=== PATIENT | female | born 1990 | race Caucasian/White ===

== ENCOUNTER 2017-10-08 21:57 | Emergency (ER) | payer MEDICAID ==
[2017-10-08 21:57] VITALS: BMI 32.4
[2017-10-08] MEDS ORDERED: Lactated Ringer's 1,000 ML IV STA (22:51)
[2017-10-08 23:13] LABS: BASO # 0.1 K/uL (0.0-0.2); BASO % 0.4 % (0.0-2.0); EOS # 0.2 K/uL (0.0-0.7); EOS % 1.5 % (0.0-4.0); HEMOGLOBIN 10.8 g/dL (12.0-16.0); LYMPH # 4.1 K/uL (1.0-4.3); LYMPH % 29.1 % (20.0-40.0); MEAN CELL VOLUME 89.1 fl (81.0-99.0); MEAN CORPUSCULAR HEMOGLOBIN 29.3 pg (27.0-31.0); MEAN CORPUSCULAR HGB CONC 32.8 g/dL (33.0-37.0); MEAN PLATELET VOLUME 8.7 fl (7.2-11.7); MONO # 1.3 K/uL (0.0-0.8); MONO % 9.5 % (0.0-10.0); NEUT # 8.4 K/uL (1.8-7.0); NEUT % 59.5 % (50.0-75.0); RBC 3.68 Mil/uL (3.80-5.20); RED CELL DISTRIBUTION WIDTH 13.7 % (11.5-14.5); WHITE BLOOD COUNT 14.2 K/uL (4.8-10.8)
[2017-10-08 23:27] LABS: PARTIAL THROMBOPLASTIN TIME 32.7 Seconds (25.6-37.1); PROTHROMBIN TIME 11.4 Seconds (9.8-13.1)
[2017-10-08 23:32] LABS: ALB/GLOB RATIO 0.7 (1.0-2.1); ALBUMIN 3.5 g/dL (3.5-5.0); ALT/SGPT 40 U/L (9-52); AST/SGOT 68 U/L (14-36); B-TYPE NATRIURETIC PEPTIDE 36.3 pg/ml (0-450); BLOOD UREA NITROGEN 7 mg/dl (7-17); CALCIUM 8.8 mg/dL (8.4-10.2); GFR AFRICAN-AMERICAN > 60; GFR NON-AFRICAN AMERICAN > 60
[2017-10-08] MEDS ORDERED: Sodium Chloride 0.9% 50 ML IV ONE (23:37)
[2017-10-08] MEDS ORDERED: Iodixanol 320 MG/ML 100 ML BOTTLE IV ONE (23:37)
--- NOTE | 2017-10-08 23:50 | ED PDOC ---
HPI: Chest Pain Time Seen by Provider: 10/08/17 22:24 Chief Complaint (Nursing): Chest Pain Chief Complaint (Provider): Chest Pain, Shortness Of Breath History Per: Patient History/Exam Limitations: no limitations Onset/Duration Of Symptoms: Days (x2) Current Symptoms Are (Timing): Still Present Additional Complaint(s): 27 y/o female with a PMHx of lupus and pleural effusion (2014) presenting for evaluation of shortness of breath and right sided chest pain x2 days. Patient reports that shes been having right sided chest pain and shortness of breath since Sunday that has been worsening since onset. Patient states she believes it started a week ago as a right sided headache which resolved. She states her shortness of breath worsens with exertion. She denies any cough or fever. Patient is currently 27 weeks . She denies any vaginal discharge or bleeding, or any urinary symptoms. PMD: Dr. Caruso [facility]: Dr. Mullins Past Medical History Reviewed: Historical Data Vital Signs: Last Vital Signs Temp 98.2 F 10/09/17 03:54 Pulse 97 H 10/09/17 03:54 Resp 22 10/09/17 03:54 BP 124/76 10/09/17 03:54 Pulse Ox 100 10/09/17 04:39 - Medical History Other PMH: Lupus, Pleural Effusion (2014) - Surgical History Other surgeries: Thoracentesis - Family History Family History: States: Unknown Family Hx - Social History Current smoker - smoking cessation education provided: No Alcohol: None Drugs: Denies - Home Medications Home Medications: Ambulatory Orders Medication Instructions Recorded Aspirin [Adult Low Dose Aspirin EC] 81 mg PO DAILY 10/09/17 No.40/Iron/FA/Dha [Cvs 1 cap PO DAILY 10/09/17 Multi-Dha Softgel] - Allergies Allergies/Adverse Reactions: Allergies Allergy/AdvReac Type Severity Reaction Status Date / Time No Known Allergies Allergy Verified 02/15/15 17:39 Review of Systems ROS Statement: Except As Marked, All Systems Reviewed And Found Negative Constitutional: Negative for: Fever Cardiovascular: Positive for: Chest Pain Respiratory: Positive for: Shortness of Breath, SOB with Exertion. Negative for : Cough Genitourinary Female: Negative for: Dysuria, Frequency, Incontinence, Hematuria , Vaginal Discharge, Vaginal Bleeding Physical Exam - Reviewed Nursing Documentation Reviewed: Yes Vital Signs Reviewed: Yes - Physical Exam Appears: Positive for: Non-toxic, In Acute Distress (mild respiratory distress) Head Exam: Positive for: ATRAUMATIC, NORMOCEPHALIC Skin: Positive for: Warm, Dry Eye Exam: Positive for: EOMI, PERRL ENT: Negative for: Pharyngeal Erythema, Tonsillar Exudate Neck: Positive for: Painless ROM, Supple Cardiovascular/Chest: Positive for: Tachycardia (regular rhythm) Respiratory: Positive for: Decreased Breath Sounds (right lower lung field, otherwise lungs clear to auscultation), Respiratory Distress (mild). Negative for: Rales, Rhonchi, Wheezing Gastrointestinal/Abdominal: Positive for: Soft. Negative for: Tenderness Back: Positive for: Normal Inspection. Negative for: Decreased ROM Extremity: Positive for: Normal ROM. Negative for: Deformity Lymphatic: Negative for: Adenopathy Neurologic/Psych: Positive for: Alert. Negative for: Motor/Sensory Deficits - Laboratory Results Result Diagrams: 10/08/17 23:10 10/08/17 23:10 - ECG O2 Sat by Pulse Oximetry: 100 (RA) Pulse Ox Interpretation: Normal Medical Decision Making Medical Decision Makin:49 Impression: Shortness of breath. Differential diagnoses include, but are not limited to PE, pleural effusion, pneumonia, dehydration, and CHF. DW pt high risk of PE in her clinical presentation (tachycardia, SOB, lupus and ) and that best test would be CT angio chest. Concerns about risk of radiation addressed and discussed very low risk of watermelon inspector effects on fetus (> 15 weeks means past organogenesis/risk of teratogenicity). Cancer risk extremely low based on population studies of radiation exposure. Benefit of ruling out serious lethal diagnosis outweighs risk to fetus and pt agreeable to have CT performed. Consent signed. Plan: -CT Angio Chest PE -EKG -BNP -CMP -Magnesium -Phosphorus -Troponin I -Urine dipstick -CBC -PTT/PT -Lactated ringers 1,000ml IV -Blood culture -surveillance monitor -IV insertion -Reevaluation 00:00 IV dye did not get infused into patient during CT scan so patient had plain chest CT. Explained to pt will probably need repeat CT WITH IV contrast to r/o PE, if no other diagnoses found on CT. Patient endorsed to Dr. Carolina pending CT result and reevaluation. ----- Scribe Attestation: Documented by German Lopez, acting as a scribe for Lashaun Herrera MD. Provider Scribe Attestation: All medical record entries made by the Scribe were at my direction and personally dictated by me. I have reviewed the chart and agree that the record accurately reflects my personal performance of the history, physical exam, medical decision making, and the department course for this patient. I have also personally directed, reviewed, and agree with the discharge instructions and disposition. Disposition - Clinical Impression Clinical Impression: Chest wall pain - Patient ED Disposition Is Patient to be Admitted: Transfer of Care - Disposition Disposition: Transfer of Care Disposition Time: 00:00 Condition: STABLE Patient Signed Over To: Morgan Carolina Handoff Comments: pending CT and reevaluation
--- NOTE | 2017-10-09 00:25 | ED PDOC ---
- Laboratory Results Result Diagrams: 10/08/17 23:10 10/08/17 23:10 - ECG O2 Sat by Pulse Oximetry: 100 (RA) Medical Decision Making Medical Decision Makin:00 Patient endorsed to me by Dr. Herrera pending CT and reevaluation. 00:51 EXAM: CT Angiography Chest With Intravenous Contrast EXAM DATE/TIME: 10/08/2017 10:49 PM CLINICAL HISTORY: 27 years old, female; Signs and symptoms; Shortness of breath; Patient HX: 90 cc visipaque leaked out. No extravasation; Additional info: SOB chest pain 27 weeks lupus TECHNIQUE: Axial computed tomographic angiography images of the chest with intravenous contrast using CT angiography protocol. All CT scans at this facility use at least one of these dose optimization techniques: automated exposure control; mA and/or kV adjustment per patient size (includes targeted exams where dose is matched to clinical indication); or iterative reconstruction. Coronal and sagittal reformatted images were created and reviewed. MIP reconstructed images were created and reviewed. CONTRAST: 90 ml of [id number] administered intravenously. COMPARISON: No relevant prior studies available. FINDINGS: Pulmonary arteries: Evaluation for pulmonary embolism is not possible secondary to contrast bolus. Aorta: Normal. No aortic aneurysm. No aortic dissection. Lungs: Mild dependent atelectatic changes in the lungs. Pleural space: Normal. No pneumothorax. No pleural effusion. Heart: Normal. No cardiomegaly. No pericardial effusion. Bones/joints: Unremarkable. No acute fracture. Soft tissues: Unremarkable. Lymph nodes: Multiple prominent axillary lymph nodes. IMPRESSION: 1. Evaluation for pulmonary embolism is not possible secondary to contrast bolus. 2. Multiple prominent axillary lymph nodes. Thank you for allowing us to participate in the care of your patient. Dictated and Authenticated by: Polo Burgos MD 10/09/2017 12:51 AM Eastern Time ([place] & [place]) Provider explained need to patient to repeat CT to exclude pulmonary embolus due to study being non diagnostic. Patient has asked that Dr. Cooper, her perinatologist, be contacted prior to repeat CT citing concern due to radiation exposure. 01:[address] Gibson, OBGYN pre sales technical consultant, covering for Dr. Mullins who is patient s private OBGYN. Dr. Gibson currently conversing with patient and addressing patients concerns of radiation exposure. 2:07 Patient is now agreeing to repeat CT angio to further exlude PE. 03:14 Dr. oCoper returned call and agreed with need for repeat CT. 03:35 EXAM: CT Angiography Chest With Intravenous Contrast EXAM DATE/TIME: 10/09/2017 2:07 AM CLINICAL HISTORY: 27 years old, female; Signs and symptoms; Shortness of breath; Additional info: Chest pain R/O pe TECHNIQUE: Axial computed tomographic angiography images of the chest with intravenous contrast using CT angiography protocol. All CT scans at this facility use at least one of these dose optimization techniques: automated exposure control; mA and/or kV adjustment per patient size (includes targeted exams where dose is matched to clinical indication); or iterative reconstruction. MIP reconstructed images were created and reviewed. CONTRAST: 53 ml of [id number] administered intravenously. COMPARISON: CT - ANGIO CHEST PE PROTOCOL 2017-10-08 23:49 FINDINGS: Pulmonary arteries: No pulmonary embolism. Aorta: Normal. No aortic aneurysm. No aortic dissection. Lungs: Mild dependent atelectatic changes in the lungs. Pleural space: Trace right-sided pleural effusion. Heart: Normal. No cardiomegaly. No pericardial effusion. Bones/joints: Unremarkable. No acute fracture. Soft tissues: Unremarkable. Lymph nodes: Enlarged axillary lymph nodes. IMPRESSION: 1. Enlarged axillary lymph nodes. 2. Trace right-sided pleural effusion. 3. No pulmonary embolism. Spoke with patient regarding results. Patient feels comfortable following up with OBGYN, Dr. Cooper, and her rn night. Patient was advised she may take Tylenol. Patient given return precautions. ----- Scribe Attestation: Documented by German Lopez, acting as a scribe for Morgan Carolina MD. Provider Scribe Attestation: All medical record entries made by the Scribe were at my direction and personally dictated by me. I have reviewed the chart and agree that the record accurately reflects my personal performance of the history, physical exam, medical decision making, and the department course for this patient. I have also personally directed, reviewed, and agree with the discharge instructions and disposition. Disposition Counseled Patient/Family Regarding: Studies Performed, Diagnosis, Need For Followup - Clinical Impression Clinical Impression: Chest wall pain - POA Present On Arrival: None - Disposition Referrals: ED Physician, [Staff Provider] - Disposition: Routine/Home Disposition Time: 03:35 Condition: STABLE Additional Instructions: LUCY TORRES, thank you for letting us take care of you today. Your provider was Morgan Carolina MD and you were treated for SOB, 27 WEEKS PREG. The emergency medical care you received today was directed at your acute symptoms. If you were prescribed any medication, please fill it and take as directed. It may take several days for your symptoms to resolve. Return to the Emergency Department if your symptoms worsen, do not improve, or if you have any other problems. Please contact your doctor or call one of the physicians/clinics you have been referred to that are listed on the Patient Visit Information form that is included in your discharge packet. Bring any paperwork you were given at discharge with you along with any medications you are taking to your follow up visit. Our treatment cannot replace ongoing medical care by a primary care provider outside of the emergency department. Thank you for allowing the [facility] team to be part of your care today. If you had an X-Ray or CT scan: A Radiologist will review the ED reading if any change in treatment is needed we will contact you. If you had a blood, urine, or wound culture: It will take several days for the results, if any change in treatment is needed we will contact you. If you had an STI test: It will take 48 hours for the results. Please call after 1 week if you have not heard back. Instructions: Chest Pain That Is Not Caused by the Heart (DC), Costochondritis (DC) Forms: [employer] (Pashto)
[2017-10-09] MEDS ORDERED: Sodium Chloride 0.9% 50 ML IV ONE (02:12)
[2017-10-09] MEDS ORDERED: Iodixanol 320 MG/ML 100 ML BOTTLE IV ONE (02:12)
[2017-10-09 02:45] VITALS: PULSE 97
[2017-10-09 03:22] VITALS: O2SAT 100
[2017-10-09 03:55] VITALS: BP 124/76; RESP 22; TEMP 98.2
--- NOTE | 2017-10-09 11:58 | CT ---
PROCEDURE: CT Chest with contrast (Pulmonary Angiogram) HISTORY: sob chest pain 27 weeks lupus COMPARISON: None available. TECHNIQUE: Axial computed tomography images were obtained of the chest in the pulmonary arterial phase of enhancement. Coronal and sagittal reformatted images were created and reviewed. Intravenous contrast dose: Contrast injection malfunction Radiation dose: Total exam DLP = 335.24 mGy-cm. This CT exam was performed using one or more of the following dose reduction techniques: Automated exposure control, adjustment of the mA and/or kV according to patient size, and/or use of iterative reconstruction technique. FINDINGS: PULMONARY ARTERIES: Nondiagnostic assessment of the pulmonary arteries. AORTA: No acute findings. No thoracic aortic aneurysm. LUNGS: Unremarkable. No nodule, mass or pulmonary consolidation. PLEURAL SPACES: Unremarkable. No effusion or pneuomothorax. HEART: Unremarkable. No cardiomegaly. No significant pericardial effusion. LYMPH NODES: Axillary, hilar, mediastinal adenopathy of uncertain etiology. Is there a known history of lymphoma/ neoplasm? BONES, CHEST WALL: Unremarkable. No fracture or destructive lesion OTHER FINDINGS: Unremarkable. IMPRESSION: Nondiagnostic assessment for pulmonary embolism. Extensive axillary, hilar and mediastinal adenopathy. Concordant results (preliminary interpretation) provided by [employer]. Procedure Completed: 00:03 Preliminary ([facility]) Report: Dictated and Authenticated: 00:51 Final Interpretation: 11:56 October 09, 2017.
--- NOTE | 2017-10-09 12:30 | CT ---
PROCEDURE: CT Chest with contrast (Pulmonary Angiogram) HISTORY: chest pain r/o PE COMPARISON: None available. TECHNIQUE: Axial computed tomography images were obtained of the chest in the pulmonary arterial phase of enhancement. Coronal and sagittal reformatted images were created and reviewed. Maximum intensity projection (MIP) reconstructed images in the following planes: Axial only. Intravenous contrast dose: 90 cc Visipaque 320 Mean Hounsfield unit values in the main pulmonary artery: 194.88 Radiation dose: Total exam DLP = 326.34 mGy-cm. This CT exam was performed using one or more of the following dose reduction techniques: Automated exposure control, adjustment of the mA and/or kV according to patient size, and/or use of iterative reconstruction technique. FINDINGS: PULMONARY ARTERIES: Unremarkable. No pulmonary embolism. AORTA: No acute findings. No thoracic aortic aneurysm. LUNGS: Unremarkable. No nodule, mass or pulmonary consolidation. PLEURAL SPACES: Unremarkable. No effusion or pneuomothorax. HEART: Unremarkable. No cardiomegaly. No significant pericardial effusion. LYMPH NODES: Axillary lymphadenopathy bilaterally. Multiple mediastinal and to lesser extent hilar lymph nodes also identified. BONES, CHEST WALL: Unremarkable. No fracture or destructive lesion OTHER FINDINGS: Unremarkable. IMPRESSION: Unremarkable CT pulmonary angiogram. No pulmonary embolus. Bilateral axillary/mediastinal adenopathy. Etiology/significance unknown. Concordant results (preliminary interpretation) provided by [employer]. Procedure Completed: 02:24 Preliminary ([facility]) Report: Dictated and Authenticated: 03:35 Final Interpretation: 12:26
== END 2017-10-09 03:59 | disposition home or self-care (01) ==
LOC: H.ER 21:57
DX: R07.89 Other chest pain (principal); O26.892 Other specified pregnancy related conditions, second trimester; O99.89 Other specified diseases and conditions complicating pregnancy, childbirth and the puerperium; M32.9 Systemic lupus erythematosus, unspecified; Z3A.27 27 weeks gestation of pregnancy
CPT/HCPCS: 71275; 80053; 83735; 83880; 84100; 84484; 85025; 85610; 85730; 87040; 99285; J7120; Q9967

== ENCOUNTER 2017-11-07 12:28 | Emergency (ER) | payer MEDICAID ==
--- NOTE | 2017-11-07 16:02 | OBHP ---
Datetime: 11/07/2017 13:45 Admit Comment, IP Provider: This is a 27 yo 31 wk with PMH of preeclambsia was sent to [facility] fro m her doctor office after he found that pt bp was high and pt complained of decrease movement f or past 3 weeks. Pt is asymptomatic and have no other complain, she denies trauma, falls, blood gush, contraction, discharges. PT denies fever, chills, headache, chest pain, SOB, abd pain, diarrhea, constipation, dysuria, p olyuria. care: [place] started at 6 week POBX: Vaginal delivery ( 2007) @36 wk induced due to Pre-eclampsia Med , aspirin 81mg PMH: preeclambsia PSH : none PFH: Mom hTN, Dm, Dad healthy Social: no smoke, no drink, denies drug use ROS: Pt denies dizziness, headache, Blurry vision, CP, SOB, NVDC, burn on urination Assessment: This is a 27 yo 31 wk with PMH of preeclambsia was sent to [facility] from her doctor office due to High blood pressure and decrease movement. Pt is lying comfortable in bed with no acute distress BP is controlled 116/76 baseline is category 1 with good variability, no late deacceleration noted Plan Observe Pt in [facility] Monitor Vitals Seen and examined with Dr Lowe Note writed by Dr. Lemus PGY1 The patient was seen with the resident I agree with the note Pelvic Type - PN: Not Done Extremities - PN: Normal Abdomen - PN: Normal Back - PN: Not Done Breast - PN: Not Done Lungs - PN: Normal Heart - PN: Normal Thyroid - PN: Not Done Neurologic - PN: Not Done HEENT - PN: Normal General - PN: Normal FHR - Baseline A Provider: 130 Comments, ACOG Physical Exam: PE: BP 116/76 P 77 Pt is lying on bed with no acute distress Heart : s1 s2 heard no murmur or extra heart sound Lung : clear on auscultation on all quadrant Abd : BS +, Non tender. EGA AdmitDate IP: 31.5 Vital Signs Provider: Reviewed; Within Normal Limits IP Chief Complaint: Decreased movement; Signs/Symptoms Gestational HTN; evaluation NICHD Variability Prov Fetus A: Moderate 6-25bpm NICHD Accel Fetus A IP Provider: 10X10 FHR Category Provider Fetus A: Category I NICHD Decel Fetus A IP Provider: Variable Genitourinary Exam: Not Done DTRs - PN: Not Done
[2017-11-07 20:42] VITALS: BP 121/78; PULSE 72; RESP 18; TEMP 98.3; O2SAT 99
== END 2017-11-07 15:25 | disposition home or self-care (01) ==
LOC: H.EROB2 12:28
DX: O13.3 Gestational [pregnancy-induced] hypertension without significant proteinuria, third trimester (principal); O36.8130 Decreased fetal movements, third trimester, not applicable or unspecified; Z3A.31 31 weeks gestation of pregnancy; O09.33 Supervision of pregnancy with insufficient antenatal care, third trimester

== ENCOUNTER 2017-12-05 13:30 | Emergency (ER) | payer MEDICAID ==
[2017-12-05 14:08] VITALS: BMI 31.2
[2017-12-05 15:01] LABS: HEMOGLOBIN 10.3 g/dL (12.0-16.0); MEAN CELL VOLUME 85.1 fl (81.0-99.0); MEAN CORPUSCULAR HEMOGLOBIN 28.7 pg (27.0-31.0); MEAN CORPUSCULAR HGB CONC 33.8 g/dL (33.0-37.0); RBC 3.58 Mil/uL (3.80-5.20); RED CELL DISTRIBUTION WIDTH 14.3 % (11.5-14.5); WHITE BLOOD COUNT 8.1 K/uL (4.8-10.8)
[2017-12-05 15:19] LABS: ALB/GLOB RATIO 0.9 (1.0-2.1); ALBUMIN 3.4 g/dL (3.5-5.0); ALT/SGPT 28 U/L (9-52); AST/SGOT 65 U/L (14-36); BLOOD UREA NITROGEN 6 mg/dl (7-17); GFR NON-AFRICAN AMERICAN > 60
[2017-12-05 15:24] LABS: SQUAMOUS EPITHIAL 2 /hpf (0-5); URINE AMORPHOUS SEDIMENT RARE /ul (<OCC); URINE BACTERIA RARE (<OCC); URINE BILIRUBIN NEGATIVE (NEGATIVE); URINE BLOOD NEGATIVE (NEGATIVE); URINE CLARITY CLOUDY (Clear); URINE COLOR YELLOW (YELLOW); URINE GLUCOSE (UA) NEG (Normal); URINE LEUKOCYTE ESTERASE TRACE Leu/uL (Negative); URINE PROTEIN NEGATIVE (NEGATIVE); URINE UROBILINOGEN 0.2-1.0 mg/dL (0.2-1.0)
--- NOTE | 2017-12-05 16:32 | OBHP ---
Datetime: 12/05/2017 16:15 IP Adm Impression: , intrauterine IP Chief Complaint Other: Elevated BP IP Admit Plan: Discharge home Admit Comment, IP Provider: HPI: Tavia is a 27yo at 36.3 who was sent to triage for monitorin g and evaluation of elevated BPs in the office today. She has a history of pre-eclampsia with her fir st 10 years ago and delivered at 35 weeks. She has been seen here in triage already at 31 w eeks for elevated BP readings in the office, however at that time her BP was normal and her labs were reassuring. She started aspirin during this and continued up until 35 weeks. Today at the office her pressure was found to be in the 140s systolic again so she was sent here. She does not mon itor her BP at home. ROS: Denies FERNANDEZ, vision changes, RUQ or epigastric pain or LE edema. History Previous diagnosis of preeclampsia, delivery at 35 weeks in 2007 Problems with this Hx preeclampsia, was on ASA 81mg PMH Denies PSH Denies Medications PNV Allergies Abdomen - PN: Normal Lungs - PN: Normal Heart - PN: Normal HEENT - PN: Normal General - PN: Normal IP Fetus A Comments: Reactive NST FHR - Baseline A Provider: 145 Comments, ACOG Physical Exam: Highest BP 135/90 General: Appears comfortable, no acute distress Vaginal exam: deferred Gestation - Est Wks by US: 36.3 Vital Signs Provider: Reviewed NICHD Variability Prov Fetus A: Moderate 6-25bpm NICHD Accel Fetus A IP Provider: 15X15 Datetime: 11/07/2017 13:45 EGA AdmitDate IP: 31.5
[2017-12-05 20:35] VITALS: BP 112/89; PULSE 89; TEMP 97.5
== END 2017-12-05 16:33 | disposition home or self-care (01) ==
LOC: H.EROB2 13:30
DX: O13.3 Gestational [pregnancy-induced] hypertension without significant proteinuria, third trimester (principal); Z3A.36 36 weeks gestation of pregnancy

== ENCOUNTER 2017-12-26 18:44 | Emergency (ER) | payer MEDICAID ==
[2017-12-26 19:37] VITALS: BMI 31.6
[2017-12-26 20:40] LABS: BASO # 0.1 K/uL (0.0-0.2); BASO % 0.7 % (0.0-2.0); EOS # 0.1 K/uL (0.0-0.7); EOS % 0.7 % (0.0-4.0); HEMOGLOBIN 10.5 g/dL (12.0-16.0); LYMPH # 4.6 K/uL (1.0-4.3); LYMPH % 48.2 % (20.0-40.0); MEAN CELL VOLUME 84.4 fl (81.0-99.0); MEAN CORPUSCULAR HGB CONC 33.2 g/dL (33.0-37.0); MEAN PLATELET VOLUME 9.9 fl (7.2-11.7); MONO # 0.8 K/uL (0.0-0.8); MONO % 8.7 % (0.0-10.0); NEUT % 41.7 % (50.0-75.0); NRBC % 0.5 % (0.0-0.0); RBC 3.77 Mil/uL (3.80-5.20); RED CELL DISTRIBUTION WIDTH 14.5 % (11.5-14.5); WHITE BLOOD COUNT 9.6 K/uL (4.8-10.8)
[2017-12-26 20:49] LABS: ALB/GLOB RATIO 0.8 (1.0-2.1); ALBUMIN 3.4 g/dL (3.5-5.0); ALT/SGPT 30 U/L (9-52); AST/SGOT 77 U/L (14-36); BLOOD UREA NITROGEN 7 mg/dl (7-17); CALCIUM 8.9 mg/dL (8.4-10.2); GFR NON-AFRICAN AMERICAN > 60
[2017-12-26 20:59] LABS: SQUAMOUS EPITHIAL 2 /hpf (0-5); URINE BACTERIA OCC (<OCC); URINE BILIRUBIN NEGATIVE (NEGATIVE); URINE BLOOD NEGATIVE (NEGATIVE); URINE CLARITY SLIGHTY-CLOUDY (Clear); URINE COLOR YELLOW (YELLOW); URINE GLUCOSE (UA) NEG (Normal); URINE LEUKOCYTE ESTERASE NEG Leu/uL (Negative); URINE PROTEIN NEGATIVE (NEGATIVE); URINE UROBILINOGEN 0.2-1.0 mg/dL (0.2-1.0)
--- NOTE | 2017-12-26 22:32 | OBHP ---
Datetime: 12/26/2017 20:24 IP Adm Impression: Term, intrauterine IP Admit Plan: Observation/Evaluation Admit Comment, IP Provider: 27 y/o , 38.6 wks based on LMP 03/29/17 and YELENA of 01/03/18 presen ts to [facility] with elevated BP at Clinic today. This is Dr. Mullins's patient and had BP of 145/99 at t he office. Patient denies any contractions, abdominal pain, VB, or LOF. denies any blurry vision, hea daches, urinary symptoms, CP or SOB. Pt had US done last week which was unremarkable as per patient, next US tomorrow. PNC: Dr. Mullins course: Elevated BP >140/90 x 1 in office. Unremarkable otherwise POBHx: Preeclampsia, 36 wks, IOL with NVD @ 36 wks PGynHx: Abn paps, 07/11/17 pap WNL PMHx: None PSHx: none Allergies: none Medications: PNVs F/H: Father thyroid Mother HTN Social: Denies tobacco, alcohol,drugs PE General: Well NAD Chest: RRR, S1S2 present Lungs: CTA B/L Abdomen: Gravid, NT Ext: No pedal edema, No calf tendernes A/P: 27 y/o , 38.6 , pt of Dr. mullins, presents with Elevated BP today at clinic R/O Preeclampsia - EFM and Dixon monitoring - CBC, CMP, UA Stat - NST reactive, moderate variability, + accels, No decels - Irregular contractions on Dixon - Labs unremarkable except AST 77 - Overall BP <140/90 except for one spurious reading >140/90 likely due to patient positioning. - Patient to be discharged home - Follow up with Dr. Mullins on 12/31/17. - Labor precautions provided - Case discussed with Dr. Lowe. Hugo Williamson, PGY1 FHR - Baseline A Provider: 130 Contraction Comments Provider: Irregular Comments, ACOG Physical Exam: General: Well NAD Chest: RRR, S1S2 present Lungs: CTA B/L Abdomen: Gravid, NT Ext: No pedal edema, No calf tendernes IP Hx Assessment: The History has been Reviewed and is Current EGA AdmitDate IP: 38.5 Vital Signs Provider: Reviewed IP Chief Complaint: Signs/Symptoms Gestational HTN NICHD Variability Prov Fetus A: Moderate 6-25bpm NICHD Accel Fetus A IP Provider: 15X15 FHR Category Provider Fetus A: Category I NICHD Decel Fetus A IP Provider: None
[2017-12-27 04:02] VITALS: BP 136/89; PULSE 75; RESP 18; TEMP 98.4; O2SAT 99
== END 2017-12-26 22:00 | disposition home or self-care (01) ==
LOC: H.EROB2 18:44
DX: O13.3 Gestational [pregnancy-induced] hypertension without significant proteinuria, third trimester (principal); Z3A.38 38 weeks gestation of pregnancy

== ENCOUNTER 2018-01-02 19:14 | Inpatient (IN) | payer MEDICAID ==
[2018-01-02 19:51] VITALS: BMI 31.7
[2018-01-02] MEDS ORDERED: Lactated Ringer's 1,000 ML IV ONE (20:22)
[2018-01-02] MEDS ORDERED: Lactated Ringer's 1,000 ML IV SCH (20:30)
[2018-01-02 20:48] LABS: BASO # 0.1 K/uL (0.0-0.2); BASO % 0.5 % (0.0-2.0); EOS % 0.4 % (0.0-4.0); HEMOGLOBIN 10.6 g/dL (12.0-16.0); LYMPH # 5.4 K/uL (1.0-4.3); LYMPH % 45.1 % (20.0-40.0); MEAN CELL VOLUME 84.5 fl (81.0-99.0); MEAN CORPUSCULAR HEMOGLOBIN 27.6 pg (27.0-31.0); MEAN CORPUSCULAR HGB CONC 32.7 g/dL (33.0-37.0); MEAN PLATELET VOLUME 9.7 fl (7.2-11.7); MONO # 1.1 K/uL (0.0-0.8); MONO % 9.5 % (0.0-10.0); NEUT # 5.3 K/uL (1.8-7.0); NEUT % 44.5 % (50.0-75.0); NRBC % 0.2 % (0.0-0.0); RBC 3.83 Mil/uL (3.80-5.20); RED CELL DISTRIBUTION WIDTH 15.3 % (11.5-14.5); WHITE BLOOD COUNT 11.9 K/uL (4.8-10.8)
[2018-01-02 23:13] VITALS: RESP 18; O2SAT 100
[2018-01-03] MEDS ORDERED: Fentanyl/Bupivacaine HCl 250 ML EPI ONE ×2 (08:22→16:10)
[2018-01-03] MEDS ORDERED: Oxytocin 30 UNIT 30 UNITS/500 ML BAG IV ONE (08:44)
[2018-01-03] MEDS ORDERED: OXYTOCIN/0.9 % NS 20 UNIT/1,000 ML BAG IV SCH ×2 (08:45→16:10)
[2018-01-03] MEDS ORDERED: ceFAZolin IV 2 gm in Dextrose 0 GM/0 ML BAG IVPB ONE (10:47)
[2018-01-03] MEDS ORDERED: Succinylcholine 200 mg/10 ml Inj IV ONE (10:55)
[2018-01-03] MEDS ORDERED: Propofol 10 mg/ml Inj (20 ML) ONE (10:55)
[2018-01-03] MEDS ORDERED: Lidocaine 2% MPF (5 ml) Inj ONE (11:04)
[2018-01-03] MEDS ORDERED: Benzocaine/Menthol SPRAY TOP PRN ×2 (11:46→16:10)
[2018-01-03 14:24] LABS: MEAN CELL VOLUME 84.9 fl (81.0-99.0); MEAN CORPUSCULAR HEMOGLOBIN 27.8 pg (27.0-31.0); MEAN CORPUSCULAR HGB CONC 32.7 g/dL (33.0-37.0); RBC 3.95 Mil/uL (3.80-5.20); RED CELL DISTRIBUTION WIDTH 15.5 % (11.5-14.5); WHITE BLOOD COUNT 13.9 K/uL (4.8-10.8)
[2018-01-03] MEDS ORDERED: Lactated Ringer's 1,000 ML IV SCH (16:10)
--- NOTE | 2018-01-04 00:46 | OBDS ---
DELIVERY PERSONNEL Delivery Doctor: Belen Mullins MD Analytical Lab Analyst: Jeannie Álvarez RN Anesthesiologist: Kaushal Hicks MD Resident: Dr. Nguyen MATERNAL INFORMATION Delivery Anesthesia: Epidural Estimated Blood Loss (ml): 200 Placenta Cultured: No Maternal Complications: None RN Comments: Dr Dave Package Delivery Room Service Runner present at delivery Provider Comments: Normal spontaneous vaginal delivery. Patient delivered viable infant with Apgars of 9 and 9 at one and 5 minutes respectively. Placenta delivered spontaneously. No lacerations, perineum intact. Uterus firm and appropriately hemostatic f ollowing delivery. Cord gases sent. Cord blood was collected. Patient tolerated delivery well. No com plications. Estimated blood loss 300 mL. LABOR SUMMARY EDC: 01/03/2018 00:00 No. Babies in Womb: 1 Attempted: No Labor Anesthesia: Epidural LABOR INFORMATION Reason for Induction: Other Onset of Labor: 01/03/2018 08:00 Complete Dilatation: 01/03/2018 10:50 Cervical Ripening Agents: Cervidil (Annotations: Cervidil 10mg inserted by Dr. Acharya ) Oxytocin: N/A Group B Beta Strep: Negative Antibiotics # of Doses: 0 Steroids Given: None Reason Steroids Not Administered: Not Applicable MEMBRANES Membranes Rupture Method: Artificial Rupture of Membranes: 01/03/2018 10:50 Length of Rupture (hrs): 0.63 Amniotic Fluid Color: Clear Amniotic Fluid Amount: Moderate Amniotic Fluid Odor: Normal STAGES OF LABOR Stage 1 hrs: 2 Stage 1 min: 50 Stage 2 hrs: 0 Stage 2 min: 38 Stage 3 hrs: 0 Stage 3 min: 4 Total Time in Labor hrs: 3 Total Time in Labor min: 32 VAGINAL DELIVERY Episiotomy: None Laceration Extension: N/A Laceration Type: None Initial Vag Sponge Count: 15 Final Vag Sponge Count: 15 Initial Vag Sharps Count: 1 Final Vag Sharps Count: 1 Sponge Count Correct: Yes BABY A INFORMATION Delivery Date/Time: 01/03/2018 11:28 Method of Delivery: Vaginal Born in Route : No : N/A Forceps: N/A Vacuum Extraction: N/A Shoulder Dystocia : No SHOULDER DYSTOCIA BABY A Infant Delivery Date/Time: 01/03/2018 11:28 PRESENTATION/POSITION BABY A Presentation: Cephalic Cephalic Presentation: Vertex Breech Presentation: N/A PLACENTA INFORMATION BABY A Placenta Delivery Time : 01/03/2018 11:32 Placenta Method of Delivery: Spontaneous Placenta Status: Delivered SCORES BABY A Heart Rate 1 min: >100 bpm Resp Effort 1 min: Good Cry Reflex Irritability 1 min: Cough or Sneeze or Pulls Away Muscle Tone 1 min: Active Motion Color 1 min: Body [place], Extremities Blue Resuscitation Effort 1 min: N/A SCORE 1 MIN: 9 Heart Rate 5 min: >100 bpm Resp Effort 5 min: Good Cry Reflex Irritability 5 min: Cough or Sneeze or Pulls Away Muscle Tone 5 min: Active Motion Color 5 min: Body [place], Extremities Blue SCORE 5 MIN: 9 INFORMATION BABY A Gestational Age at Delivery: 40.0 Gestational Status: Term Outcome : Liveborn Condition : Stable Sex: Female WEIGHT/LENGTH BABY A Infant Birthweight (gms): 3350 Infant Weight (lb): 7 Infant Weight (oz): 6 CORD INFORMATION BABY A No. Cord Vessels: 3 Nuchal Cord : N/A Cord Blood Taken: Yes Infant Suction: Mouth; Nose
--- NOTE | 2018-01-04 00:47 | OBDS ---
DELIVERY PERSONNEL Delivery Doctor: Belen Mullins MD Steam Shovel Runner: Jeannie Álvarez RN Anesthesiologist: Kaushal Hicks MD Resident: Dr. Nguyen MATERNAL INFORMATION Delivery Anesthesia: Epidural Estimated Blood Loss (ml): 200 Placenta Cultured: No Maternal Complications: None RN Comments: Dr Dave Airfield Engineer Officer present at delivery Provider Comments: Normal spontaneous vaginal delivery. Patient delivered viable infant with Apgars of 9 and 9 at one and 5 minutes respectively. Placenta delivered spontaneously. No lacerations, perineum intact. Uterus firm and appropriately hemostatic f ollowing delivery. Cord gases sent. Cord blood was collected. Patient tolerated delivery well. No com plications. Estimated blood loss 300 mL. LABOR SUMMARY EDC: 01/03/2018 00:00 EDC: 12/30/2017 00:00 EDC: 01/04/2018 00:00 No. Babies in Womb: 1 Attempted: No Labor Anesthesia: Epidural LABOR INFORMATION Reason for Induction: Other Onset of Labor: 01/03/2018 08:00 Complete Dilatation: 01/03/2018 10:50 Cervical Ripening Agents: Cervidil (Annotations: Cervidil 10mg inserted by Dr. Acharya ) Oxytocin: N/A Group B Beta Strep: Negative Antibiotics # of Doses: 0 Steroids Given: None Reason Steroids Not Administered: Not Applicable MEMBRANES Membranes Rupture Method: Artificial Rupture of Membranes: 01/03/2018 10:50 Length of Rupture (hrs): 0.63 Amniotic Fluid Color: Clear Amniotic Fluid Amount: Moderate Amniotic Fluid Odor: Normal STAGES OF LABOR Stage 1 hrs: 2 Stage 1 min: 50 Stage 2 hrs: 0 Stage 2 min: 38 Stage 3 hrs: 0 Stage 3 min: 4 Total Time in Labor hrs: 3 Total Time in Labor min: 32 VAGINAL DELIVERY Episiotomy: None Laceration Extension: N/A Laceration Type: None Initial Vag Sponge Count: 15 Final Vag Sponge Count: 15 Initial Vag Sharps Count: 1 Final Vag Sharps Count: 1 Sponge Count Correct: Yes BABY A INFORMATION Infant Delivery Date/Time: 01/03/2018 11:28 Method of Delivery: Vaginal Born in Route : No : N/A Forceps: N/A Vacuum Extraction: N/A Shoulder Dystocia : No SHOULDER DYSTOCIA BABY A Infant Delivery Date/Time: 01/03/2018 11:28 PRESENTATION/POSITION BABY A Presentation: Cephalic Cephalic Presentation: Vertex Breech Presentation: N/A PLACENTA INFORMATION BABY A Placenta Delivery Time : 01/03/2018 11:32 Placenta Method of Delivery: Spontaneous Placenta Status: Delivered SCORES BABY A Heart Rate 1 min: >100 bpm Resp Effort 1 min: Good Cry Reflex Irritability 1 min: Cough or Sneeze or Pulls Away Muscle Tone 1 min: Active Motion Color 1 min: Body [place], Extremities Blue Resuscitation Effort 1 min: N/A SCORE 1 MIN: 9 Heart Rate 5 min: >100 bpm Resp Effort 5 min: Good Cry Reflex Irritability 5 min: Cough or Sneeze or Pulls Away Muscle Tone 5 min: Active Motion Color 5 min: Body [place], Extremities Blue SCORE 5 MIN: 9 INFANT INFORMATION BABY A Gestational Age at Delivery: 40.0 Gestational Status: Term Outcome : Liveborn Condition : Stable Infant Sex: Female WEIGHT/LENGTH BABY A Birthweight (gms): 3350 Infant Weight (lb): 7 Weight (oz): 6 CORD INFORMATION BABY A No. Cord Vessels: 3 Nuchal Cord : N/A Cord Blood Taken: Yes Infant Suction: Mouth; Nose
--- NOTE | 2018-01-04 08:53 | OBPPN ---
Datetime: 01/04/2018 08:48 PP Pain Prov: Within normal limits PP Nausea Prov: Denies PP Flatus Prov: Yes PP Breasts Prov: Not Done PP Heart Prov: Normal PP Lungs Prov: Normal PP Abdomen/Uterus Prov: Normal PP Lochia Prov: Not Done PP Vulva/Perineum Prov: Not Done PP CVA Tenderness Prov: Normal PP Extremities Prov: Normal PP C/S Incision Prov: Not Applicable PP Progress Prov: Normal PP Impression Prov: Normal progression PP Plan Prov: Continue present management PP Progress Note Prov: Patient doing well ambulating tolerating diet Vital signs stable afebrile Uterus firm below the umbilicus Extremities no Homans day #1 Ambulation, regular diet, analgesias needed Vital Signs Provider PP: Reviewed
[2018-01-04 11:42] LABS: BASO # 0.1 K/uL (0.0-0.2); BASO % 0.4 % (0.0-2.0); EOS # 0.1 K/uL (0.0-0.7); EOS % 0.3 % (0.0-4.0); HEMOGLOBIN 8.4 g/dL (12.0-16.0); LYMPH % 41.5 % (20.0-40.0); MEAN CELL VOLUME 85.3 fl (81.0-99.0); MEAN CORPUSCULAR HEMOGLOBIN 27.8 pg (27.0-31.0); MEAN CORPUSCULAR HGB CONC 32.6 g/dL (33.0-37.0); MEAN PLATELET VOLUME 9.2 fl (7.2-11.7); MONO # 1.6 K/uL (0.0-0.8); MONO % 9.4 % (0.0-10.0); NEUT # 8.2 K/uL (1.8-7.0); NEUT % 48.4 % (50.0-75.0); NRBC % 0.1 % (0.0-0.0); RBC 3.01 Mil/uL (3.80-5.20); RED CELL DISTRIBUTION WIDTH 15.5 % (11.5-14.5); WHITE BLOOD COUNT 16.9 K/uL (4.8-10.8)
[2018-01-04] MEDS ORDERED: Oxycodone/Acetaminophen 5/325 mg Tab PO ONE (17:21)
--- NOTE | 2018-01-05 10:21 | OBPPN ---
Datetime: 01/05/2018 10:17 PP Pain Prov: Within normal limits PP Nausea Prov: Denies PP Flatus Prov: Yes PP Breasts Prov: Normal PP Heart Prov: Normal PP Lungs Prov: Normal PP Abdomen/Uterus Prov: Normal PP Lochia Prov: Normal PP Vulva/Perineum Prov: Normal PP CVA Tenderness Prov: Normal PP Extremities Prov: Normal PP Progress Prov: Normal PP Comments Phys Exam Prov: Abd: Soft,NT,BS- present UT- Firm PP Impression Prov: Normal progression PP Plan Prov: Discharge PP Progress Note Prov: S/P . PPD # 2 Clinically Stable. Plan: D/C Home F/U with Dr Mullins in 6 weeks Vital Signs Provider PP: Reviewed
--- NOTE | 2018-01-05 10:24 | OBDCSUM ---
Datetime: 01/05/2018 10:19 Discharged to, Provider: Home Follow up at, Provider: Dr Mullnis Disch Instr Activity: Normal activity Disch Instr Diet: Regular Discharge Instructions, Provider: Routine instructions given Discharge Diagnosis, Provider: Term Delivered Discharge Time: 01/05/2018 10:20 Follow up in weeks, Provider: 6 weeks Disch Referrals: None Contraception discussed, Prov: Yes Discharge Comment, Provider: S/P uncomplicated , Clinicaly Stable Discharge Diagnosis Prov Other: S/P , Clinicaly Stable
[2018-01-05 19:13] VITALS: BP 135/87; PULSE 79; TEMP 98.4
== END 2018-01-05 14:10 | disposition home or self-care (01) | DRG 373 ==
LOC: H.EROB2 19:14 → H.L&D 20:22 → H.OB/GYN 01-03 18:18
PROVIDERS: ADMIT Obstetrics & Gynecology Gynecology; ATTEND Obstetrics & Gynecology Gynecology
PROC: 4A1HXCZ Monitoring of Products of Conception, Cardiac Rate, External Approach (ICD-10-PCS; 2018-01-02)
PROC: 10E0XZZ Delivery of Products of Conception, External Approach (ICD-10-PCS; principal; 2018-01-03)
DX: O80 Encounter for full-term uncomplicated delivery (principal); M32.9 Systemic lupus erythematosus, unspecified; Z37.0 Single live birth; Z3A.40 40 weeks gestation of pregnancy